=== PATIENT | male | born 2005 | race Two or more races ===

== ENCOUNTER 2023-03-25 16:14 | Emergency (ER) | payer MEDICAID, OTHER ==
[~2023-03-25] VITALS: Ht 180.3 cm; Wt 77.0 kg
[2023-03-25] MEDS ORDERED: cefTRIAXone SOD 1,000 MG VL IM ONE (16:45)
[2023-03-25] MEDS ORDERED: ACETAMINOPHEN 500 MG TAB PO ONE (16:45)
[2023-03-25] MEDS ORDERED: DexAMETHasone SOD PHOS 10MG/1ML VIAL INJ IM ONE (17:00)
[2023-03-25 17:05] VITALS: BP 145/81; PULSE 108; RESP 16; O2SAT 98
[2023-03-25] MEDS ORDERED: IBUP-1454 PO (17:33)
[2023-03-25] MEDS ORDERED: PRED20TA2 PO (17:33)
[2023-03-25] MEDS ORDERED: AUG875T PO (17:33)
[2023-03-25 17:40] VITALS: TEMP 99.6
== END 2023-03-25 17:43 | disposition home or self-care (01) ==
LOC: ER 16:14
DX: J03.90 Acute tonsillitis, unspecified (principal); H66.93 Otitis media, unspecified, bilateral
CPT/HCPCS: 71046; 96372; 99284; J0696; J1100